=== PATIENT | female | born 1990 | race Caucasian/White ===

== ENCOUNTER 2017-08-13 14:25 | Emergency (ER) | payer MEDICAID, OTHER ==
[~2017-08-13] VITALS: Ht 162.6 cm; Wt 91.0 kg
[~2017-08-13 14:25] MED LIST: CALC-649; CIPR7.5D4 BOTH EARS; HYDR-906 PO; NAPR-688 PO; NPH10OT BOTH EARS; PREN1TAB49
[2017-08-13 14:50] VITALS: Ht 162.6 cm; Wt 91.0 kg
[2017-08-13] MEDS ORDERED: ACET500C5 PO (15:34)
[2017-08-13] MEDS ORDERED: OFLO5DRO7 BOTH EARS (15:34)
--- NOTE | 2017-08-13 15:40 | ERD ---
ER Documentation Chief Complaint Date/Time DATE: 08/13/17 TIME: 15:36 Chief Complaint BILATERAL EAR PAIN HPI 27-year-old female patient with no significant past medical history presents the ED complaining of bilateral ear pain that started yesterday. States that she feels like her ears are clogged. Denies any hearing loss. Describes the pain as sharp and strong and rates it a 8 out of 10. Denies any fever, chills, nausea, vomiting, diarrhea, chest pain, wheezing. States that she uses Q-tips. Denies any recent swimming. ROS All systems reviewed and are negative except as per history of present illness. Medications Home Meds Active Scripts Acetaminophen* (Tylophen*) 500 Mg Capsule, 1 CAP PO Q6H Y for PAIN AND OR ELEVATED TEMP, #20 CAP Prov:GRISELDA OROZCO PA-C 08/13/17 Ofloxacin Otic (Ofloxacin Otic) 5 Ml Drops, 5 DROP BOTH EARS BID for 10 Days, # 1 BOTTLE Prov:GRISELDA OROZCO PA-C 08/13/17 Hydrocodone/Acetaminophen ([place] 5-325 Tablet) 1 Each Tablet, 1 EACH PO Q6 for SEVERE PAIN LEVEL 7-10, #5 TAB Prov:HANNAH JUARES DO 10/21/16 Naproxen* (Naproxen*) 500 Mg Tablet, 500 MG PO BID Y for PAIN, #10 TAB Prov:HANNAH JUARES DO 10/21/16 Neomycin/Polymyxin/Hydrocort* (Cortisporin* Otic) 10 Ml Susp, 4 DROP BOTH EARS QID for 7 Days, EA Prov:HANNAH JUARES DO 10/21/16 Ciprofloxacin Hcl/Dexameth (Ciprodex Otic Suspension) 7.5 Ml Drops.susp, 4 DROP BOTH EARS BID for 7 Days, EA Prov:HANNAH JUARES DO 10/21/16 Reported Medications Calcium Carbonate (Calcium) 1 Tab Tablet 11/10/10 Vits W-Ca,Fe,Fa(<1MG) () 1 Tab Tablet 11/10/10 Allergies Allergies: Coded Allergies: No Known Allergy (Verified Allergy, Mild, 11/10/10) PMhx/Soc History of Surgery: No Anesthesia Reaction: No Hx Neurological Disorder: No Hx Respiratory Disorders: No Hx Cardiac Disorders: No Hx Psychiatric Problems: No Hx Miscellaneous Medical Probl: No Hx Alcohol Use: No Hx Substance Use: No Hx Tobacco Use: No Smoking Status: Never smoker Physical Exam Vitals Vital Signs Date Time Temp Pulse Resp B/P Pulse Ox O2 Delivery O2 Flow Rate FiO2 08/13/17 14:50 99.5 91 19 128/80 100 Physical Exam Const: Lig-[id number]-[id number], well-nourished. In no acute distress. Head: Atraumatic, normocephalic Eyes: Normal Conjunctiva without injection. No purulent discharge. PERRL. EOMI ENT: Normal external ear. Bilateral ear canal with erythema. Left Tympanic membrane pearly santos without effusion or bulging. Tenderness to palpation of the bilateral tragus. No tenderness palpation of the bilateral mastoid. Nasal canal clear with normal turbinates. Moist oropharynx without tonsillar exudates. Non-erythematous pharynx. Uvula midline. No drooling. No trismus. Neck: Full range of motion. No meningismus. No cervical lymphadenopathy. Resp: Clear to auscultation bilaterally. No wheezing, rhonchi, rales, or crackles. No accessory muscle use. No retractions. Cardio: Regular rate and rhythm. No murmurs, rubs or gallops. Abd: Soft, non tender, non distended. Normal bowel sounds. No palpable masses. No rebound tenderness. No guarding. Skin: No petechiae or rashes Back: No midline tenderness. No CVA tenderness. Ext: No cyanosis, or edema. Neur: Awake and alert. Psych: Normal Mood and Affect Procedures/MDM This is a 27-year-old female patient with no significant past medical history presents to the ED complaining of bilateral ear pain that started yesterday. Patient is afebrile and nontoxic-appearing. Patient has normal vital signs. Patient's physical exam is consistent with otitis externa. Patient does not have tenderness to the mastoid. Low suspicion for otitis media or mastoiditis. Patient's physical exam include lungs which were clear to auscultation and a normal pulse oximetry. Patient is speaking in full sentences. There is a low suspicion for pneumonia, epiglottitis, croup, viral/strep pharyngitis, sinusitis , peritonsillar abscess, retropharyngeal abscess, meningitis, sepsis, acute abdomen or other emergent conditions. Discharge medications: Tylenol, Ofloxacin drops Follow up with primary care physician in 1-2 days. Instructed patient to return to the ED sooner for any worsening symptoms. Patient's questions were answered. Patient understood and agreed with discharge plan. Patient discharged stable. Departure Diagnosis: Primary Impression: Otitis externa Otitis externa type: unspecified type Chronicity: unspecified Laterality: bilateral Qualified Code: H60.93 - Otitis externa of both ears, unspecified chronicity, unspecified type Condition: Stable Patient Instructions: External Ear Infection (Adult) Referrals: [facility] YOU HAVE RECEIVED A MEDICAL SCREENING EXAM AND THE RESULTS INDICATE THAT YOU DO NOT HAVE A CONDITION THAT REQUIRES URGENT TREATMENT IN THE EMERGENCY DEPARTMENT. FURTHER EVALUATION AND TREATMENT OF YOUR CONDITION CAN WAIT UNTIL YOU ARE SEEN IN YOUR DOCTORS OFFICE WITHIN THE NEXT 1-2 DAYS. IT IS YOUR RESPONSIBILITY TO MAKE AN APPOINTMENT FOR FOLOW-UP CARE. IF YOU HAVE A PRIMARY DOCTOR --you should call your primary doctor and schedule an appointment IF YOU DO NOT HAVE A PRIMARY DOCTOR YOU CAN CALL OUR PHYSICIAN REFERRAL HOTLINE AT IF YOU CAN NOT AFFORD TO SEE A PHYSICIAN YOU CAN CHOSE FROM THE FOLLOWING [facility] [address] [facility]. [facility] [address] [facility] [facility] [address] [facility] [facility] [address] [facility]. [facility] [address] [facility]. [facility]. [address] [facility] YOU HAVE RECEIVED A MEDICAL SCREENING EXAM AND THE RESULTS INDICATE THAT YOU DO NOT HAVE A CONDITION THAT REQUIRES URGENT TREATMENT IN THE EMERGENCY DEPARTMENT. FURTHER EVALUATION AND TREATMENT OF YOUR CONDITION CAN WAIT UNTIL YOU ARE SEEN IN YOUR DOCTORS OFFICE WITHIN THE NEXT 1-2 DAYS. IT IS YOUR RESPONSIBILITY TO MAKE AN APPOINTMENT FOR FOLOW-UP CARE. IF YOU HAVE A PRIMARY DOCTOR --you should call your primary doctor and schedule and appointment IF YOU DO NOT HAVE A PRIMARY DOCTOR YOU CAN CALL OUR PHYSICIAN REFERRAL HOTLINE AT . IF YOU CAN NOT AFFORD TO SEE A PHYSICIAN YOU CAN CHOSE FROM THE FOLLOWING [facility] INSTITUTIONS[facility] [address] [place] [address] [facility] [address] [place] [address] [facility] [address] [place] [address] [facility] Additional Instructions: Call your primary care doctor TOMORROW for an appointment during the next 2-3 days.See the doctor sooner or return here if your condition worsens before your appointment time. GRISELDA OROZCO PA-C Aug 13, 2017 15:40 GRISELDA OROZCO PA-C Aug 13, 2017 15:40
[2017-08-13 16:36] VITALS: BP 122/65; PULSE 71; RESP 18; TEMP 98.2
== END 2017-08-13 16:38 | disposition home or self-care (01) ==
LOC: FTE 14:25
DX: H60.93 Unspecified otitis externa, bilateral (principal)
CPT/HCPCS: 99283